=== PATIENT | male | born 1945 | race Caucasian/White ===

== ENCOUNTER 2019-08-15 01:14 | Day surgery (SDC) | payer MEDICARE, SELFPAY ==
[2019-08-07 14:19] VITALS: BMI 25.9
--- NOTE | 2019-08-15 07:48 | P.HP_ITS ---
History of Present Illness History of Present Illness Consent: Risks, benefits, and alternatives have been discussed and questions answered. Patient agrees to proceed with procedure. Chief complaint: Neoplasm Screening Narrative: Ayden Shanks is a 73 year old W male referred for screening colonoscopy. Patient's last colonoscopy over 10 years ago. He is asymptomatic and there is no family history of colon polyps or colon cancer [facility] Past Medical History Medical History (Updated 08/15/19 @ 07:49 by Jimi Cummings MD) Dyslipidemia GERD (gastroesophageal reflux disease) History of bladder cancer Meds Home Medications and Allergies Home Medications Medication Instructions Recorded Confirmed Type aspirin 81 mg PO DAILY 08/07/19 08/07/19 History cyanocobalamin (vitamin B-12) 1,000 mcg PO DAILY 08/07/19 08/07/19 History [Vitamin B-12] flu vacc [id number](65yr up)PF 0.5 ml IM MONTHLY 08/07/19 08/07/19 History [Fluzone High-Dose (PF)] [id number]-IP-lycopen-lutein 1 tablet PO DAILY 08/07/19 08/07/19 History [Centrum Silver] pantoprazole 10 mg PO QAM 08/07/19 08/07/19 History warfarin 2.5 mg PO DAILY 08/07/19 08/07/19 History Allergies Allergy/AdvReac Type Severity Reaction Status Date / Time Contrast Media Allergy Unknown HIVES Uncoded 08/15/19 07:29 Exam Const: Orientation/consciousness: patient oriented x3 Resp: Auscultation: clear to auscultation bilaterally Cardio: Rate: regular rate Rhythm: regular rhythm Heart sounds: no murmurs GI: GI Palp: Yes Soft to palpation, No Tenderness to palpation present (GI), Yes No hepatosplenomegaly present and No Palpable mass present Auscultation: normal bowel sounds Neuro: General: patient oriented x3 and no focal motor deficits Extrem: General: no pedal edema Assessment and Plan Additional Plan screening colonoscopy in average risk patient
[2019-08-15] MEDS: LACTATED RINGERS 1,000 ML 150 ML IV CONT (07:56)
[2019-08-15 08:00] VITALS: BP 116/76; PULSE 82; RESP 18; TEMP 36.5; O2SAT 95
--- NOTE | 2019-08-15 08:02 | WPDANESEPPF ---
Anes - Initial Pre Proc Eval Procedure: Operation Date: 08/15/19 08:30 Proposed Procedures p Screening Colonoscopy - Jimi Cummings MD Date/Time: 08/15/19 08:02 Surgeon: Jimi Cummings MD Pre Op Diagnosis: Neoplasm Screening Patient Data Age: 73 Gender: M Height: 6 ft Weight: 87.1 kg Last Vital Signs Temp 36.5 C 08/15/19 08:00 Pulse 82 08/15/19 08:00 Resp 18 08/15/19 08:00 BP 116/76 08/15/19 08:00 Pulse Ox 95 08/15/19 08:00 Allergies Allergy/AdvReac Type Severity Reaction Status Date / Time Contrast Media Allergy Unknown HIVES Uncoded 08/15/19 07:29 Home Medications Medication Instructions Recorded Confirmed Type aspirin 81 mg PO DAILY 08/07/19 08/07/19 History cyanocobalamin (vitamin B-12) 1,000 mcg PO DAILY 08/07/19 08/07/19 History [Vitamin B-12] flu vacc [id number](65yr up)PF 0.5 ml IM MONTHLY 08/07/19 08/07/19 History [Fluzone High-Dose (PF)] [id number]-exq-YI-lycopen-lutein 1 tablet PO DAILY 08/07/19 08/07/19 History [Centrum Silver] pantoprazole 10 mg PO QAM 08/07/19 08/07/19 History warfarin 2.5 mg PO DAILY 08/07/19 08/07/19 History Laboratory Tests 08/15/19 07:50 PT Pending INR Pending Patient hx anesthesia problems: none Family hx anesthesia problems: none PMFSH Past Medical History Medical History Dyslipidemia GERD (gastroesophageal reflux disease) History of bladder cancer Anes - Eval Final PreProcedure Day of Procedure 08/15/19 08:02 Patient weight: overweight Heart: regular rate and rhythm Lungs: clear to auscultation Airway: Mallampati scale class II Neurological: alert and oriented Last oral intake: >/= 8 hours ASA classification: III Anesthetic plan: proceed Anesthesia type and monitoring: general GIVS and standard monitoring Informed Consent: The patient's anesthetic plan and its attendant risks and benefits were discussed with the patient/family/POA. Questions were solicited and answers provided to the satisfaction of the patient/family/POA.
[2019-08-15 08:07] LABS: INR 1.1; Prothrombin Time 14.3 Seconds (11.1-14.7)
[2019-08-15 08:52] VITALS: BP 93/62; PULSE 79; RESP 16; O2SAT 92
[2019-08-15 09:02] VITALS: BP 105/69; PULSE 79; RESP 16; O2SAT 94
[2019-08-15 09:12] VITALS: BP 107/72; PULSE 70; RESP 18; O2SAT 97
== END 2019-08-15 09:29 | disposition home or self-care (01) ==
PROVIDERS: PCP Internal Medicine; Visit Provider Internal Medicine Gastroenterology
PROC: 0DJD8ZZ Inspection of Lower Intestinal Tract, Via Natural or Artificial Opening Endoscopic (ICD-10-PCS; CPT 45378; principal; 2019-08-15 08:30)
DX: Z12.11 Encounter for screening for malignant neoplasm of colon (principal); D12.0 Benign neoplasm of cecum; K64.8 Other hemorrhoids; K64.4 Residual hemorrhoidal skin tags; K57.30 Diverticulosis of large intestine without perforation or abscess without bleeding; E78.5 Hyperlipidemia, unspecified; K21.9 Gastro-esophageal reflux disease without esophagitis; Z79.82 Long term (current) use of aspirin; Z79.01 Long term (current) use of anticoagulants; Z85.51 Personal history of malignant neoplasm of bladder
CPT/HCPCS: 45380; 36415; 85610; 88305; J2001; J2704; J7120